=== PATIENT | female | born 1965 | race Two or more races ===

== ENCOUNTER 2025-08-16 14:45 | Inpatient (IN) | payer OTHER ==
[~2025-08-16] VITALS: Ht 154.9 cm; Wt 75.0 kg
--- NOTE | 2025-08-16 14:53 | ECG ---
[facility] Test Date: 2025-08-16 Test Time: 14:51:24 Pat Name: CAESAR BENÍTEZ Department: ED Room: [address] [place] [address] Gender: F Pharmacy Technician Per Diem: JACKSON : 1965 Requested By: BERNIE EVANS Order Number: [id number] Reading MD: Alan Cabrera Measurements Intervals [place] Rate: 93 P: 46 LA: 123 QRS: 85 QRSD: 86 T: 7 QT: 321 QTc: 400 Interpretive Statements Sinus rhythm Low voltage, precordial leads Electronically Signed On 08-17-2025 15:07:46 PST by Alan Cabrera Please click the below link to view image of tracing.
--- NOTE | 2025-08-16 15:13 | ED.PDOC ---
HPI Comments 60y F who presents to the ED for chief complaint of chest pain. Pt states she has been having chest pain for the past 3x days. Pt states she has been having chest pain across her chest, radiating to the back, intermittent, non-radiating, sharp in nature, rating the pain 6/10, with no associated exacerbating or relieving factors. Pt has associated shortness of breath and lightheadedness but otherwise denies any other symptoms. Chief Complaint: Chest Pain Time Seen by MD: 15:10 Reviewed Notes: Nurses Notes, Medications, Allergies Allergies: Coded Allergies: NO KNOWN ALLERGIES (Unverified , 08/16/25) Information Source: Patient Mode of Arrival: Ambulatory Brought in by: self Severity: Moderate Timing: Hours Duration: Since onset Prehospital treatment: None Location: Chest (R), Chest (L) Radiation: Back Quality: Sharp, Pressure Onset: At Rest Cardiac Risk Factors: None PE Risk Factors: None History of: None Modifying Factors: Nothing Associated Signs and Symptoms: SOB, Other (lightheaded) Past Medical History PAST MEDICAL HISTORY: Denies Surgical History: Cholecystectomy, Hysterectomy, Tonsillectomy Surgical History (Other): R shoulder, Family History Family History: Family hx of DM, Family hx of heart ophelia, Family hx of HTN Social History Smoker: Non-Smoker Alcohol: Occasionally Drugs: Denies Drug Use Lives In: Home Constitutional: reports: fatigue, weakness; denies: chills, diaphoresis, fever, malaise, sweats, others EENTM: denies: blurred vision, double vision, ear bleeding, ear discharge, ear drainage, ear pain, ear ringing, eye pain, eye redness, hearing loss, mouth pain, mouth swelling, nasal discharge, nose bleeding, nose congestion, nose pa in, photophobia, tearing, throat pain, throat swelling, voice changes, others Respiratory: reports: shortness of breath; denies: cough, hemoptysis, orthopnea, SOB at rest, SOB with excertion, stridor, wheezing, others Cardiovascular: denies: chest pain, dizzy spells, diaphoresis, Dyspnea on exertion, edema, irregular heart beat, left arm pain, lightheadedness, palpitations, PND, syncope, others Gastrointestinal: denies: abdomen distended, abdominal pain, blood streaked bowels, constipated, diarrhea, dysphagia, difficulty swallowing, hematemesis, m ary, nausea, poor appetite, poor fluid intake, rectal bleeding, rectal pain, vomiting, others Genitourinary: denies: abnormal vagina bleeding, burning, dyspareunia, dysuria, flank pain, frequency, hematuria, incontinence, pain, , vagina discharge, urgency, others Neurological: denies: dizziness, fainting, headache, left sided numbness, left sided weakness, numbness, paresthesia, pre-existing deficit, right sided numbness, right sided weakness, seizure, speech problems, tingling, tremors, weakness, others Musculoskeletal: denies: back pain, gout, joint pain, joint swelling, muscle pain, muscle stiffness, neck pain, others Integumetry: denies: bruises, change in color, change in hair/nails, dryness, laceration, lesions, lumps, rash, wounds, others Allergic/Immunocompromised: denies: Difficulty Healing, Frequent Infections, Hives, Itching, others Hematologic/Lymphatic: denies: anemia, blood clots, easy bleeding, easy bruising, swollen glands, others Endocrine: denies: excessive hunger, excessive sweating, excessive thirst, excessive urination, flushing, intolerance to cold, intolerance to heat, unexpla ined weight gain, unexplained weight loss, others Psychiatric: denies: anxiety, bipolar disorder, depression, hopeless, panic disorder, schizophrenia, sleepless, suicidal, others All Other Systems: Reviewed and Negative Physical Exam General Appearance: Moderate Distress HEENT: Normal ENT Inspection, Pharynx Normal, TMs Normal Neck: Full Range of Motion, Non-Tender, Normal, Normal Inspection Respiratory: Chest Non-Tender, Lungs Clear, No Accessory Muscle Use, No Respiratory Distress, Normal Breath Sounds Cardiovascular: No Edema, No JVD, No Murmur, No Gallop, Normal Peripheral Pulses, Regular Rate/Rhythm Breast Exam: Deferred Gastrointestinal: No Organomegaly, Non Tender, No Pulsatile Mass, Normal Bowel Sounds, Soft Genitalia: Deferred Pelvic: Deferred Rectal: Deferred Extremities: No calf tenderness, Normal capillary refill, Normal inspection, Normal range of motion, Non-tender, No pedal edema Musculoskeletal : Apperance: Normal Neurologic: Alert, planning intern II-XII nml as Tested, No Motor Deficits, Normal Affect, Normal Mood, No Sensory Deficits Cerebellar Function: Normal Reflexes: Normal Skin: Dry, Normal Color, Warm Lymphatic: No Adenopathy EKG EKG : Pulse Rate (adult): 93 [place]: Normal Cardiac Rhythm: NSR Block: None Hypertrophy: None ST: Normal Comments low voltage Was a procedure done? Was a procedure done?: No CP Differential Dx Differential Diagnosis: A-fib, A-Flutter, Angina, Anxiety / Panic Attack, PVC's, Sinus Tachycardia Differential Diagnosis: HTN Essential, HTN Accelerated Differential Diagnosis: Chest Wall Pain, Pericarditis X-Ray, Labs, Meds, VS Vital Signs Date Time Temp Pulse Resp B/P (MAP) Pulse Ox O2 Delivery O2 Flow Rate FiO2 08/16/25 14:51 97.6 102 16 134/86 96 97.6 Lab Test 08/16/25 16:14 08/16/25 15:40 08/16/25 14:51 Range/Units Urine Color Pending Urine Clarity Pending Urine pH Pending Urine Specific [place] Pending Urine Protein Pending Urine Ketones Pending Urine Blood Pending Urine Nitrite Pending Urine Bilirubin Pending Urine Urobilinogen Pending Urine Leukocyte Esterase Pending Urine RBC Pending Urine Microscopic WBC Pending Urine Squamous Epithelial Cells Pending Urine Bacteria Pending Urine Glucose Pending Troponin I High Sensitivity Pending < 3 L </=34 ng/L White Blood Count 7.7 4.4-10.8 10^3/uL Red Blood Count 4.97 4.0-5.20 10^6/uL Hemoglobin 14.9 12.2-16.2 g/dL Hematocrit 45.3 36.0-46.0 % Mean Corpuscular Volume 91.0 80.0-100.0 fL Mean Corpuscular Hemoglobin 30.0 28.0-32.0 pg Mean Corpuscular Hemoglobin Concent 33.0 32.0-36.0 g/dL Red Cell Distribution Width 14.6 H 11.8-14.3 % Platelet Count 308 140-450 10^3/uL Mean Platelet Volume 8.8 6.9-10.8 fL Neutrophils (%) (Auto) 65.9 37.0-80.0 % Lymphocytes (%) (Auto) 20.7 10.0-50.0 % Monocytes (%) (Auto) 8.5 0.0-12.0 % Eosinophils (%) (Auto) 4.1 0.0-7.0 % Basophils (%) (Auto) 0.8 0.0-2.0 % Neutrophils # (Auto) 5.1 1.6-8.6 10 ^3/uL Lymphocytes # (Auto) 1.6 0.4-5.4 10 ^3/uL Monocytes # (Auto) 0.6 0-1.3 10 ^3/uL Eosinophils # (Auto) 0.3 0-0.8 10 ^3/uL Basophils # (Auto) 0.1 0-0.2 10 ^3/uL Nucleated Red Blood Cells 0.1 % Sodium Level 143 136-145 mmol/L Potassium Level 4.2 3.5-5.1 mmol/L Chloride Level 109 H 98-107 mmol/L Carbon Dioxide Level 27 20-31 mmol/L Anion Gap 7 5-15 Blood Urea Nitrogen 8 L 9-23 mg/dL Creatinine 0.74 0.550-1.02 mg/dL Glomerular Filtration Rate Calc 94 >90 mL/min BUN/Creatinine Ratio 10.8 10.0-20.0 Serum Glucose 70 L 74-106 mg/dL Calcium Level 9.0 8.7-10.4 mg/dL IV Hep-Lock was established. The patient's CBC is within normal limits The chemistry panel is within normal limits At this time, the patient is being admitted to the hospitalist The chest x-ray shows no sign of any infiltrates. A cardiology consult will be obtained. Images Reviewed?: Images reviewed and evaluated by me Time of 1ST Reevaluation: 15:40 Reevaluation 1ST: Unchanged Patient Education/Counseling: Diagnosis, Treatment, Prognosis Family Education/Counseling: No Family Present SEPSIS Sepsis Screen Date sepsis recognized/suspect: Aug 16, 2025 Time Sepsis recognized/suspect: 1454 Recent Procedure: No On Antibiotic Therapy: No Respiratory Rate >20: No Heart Rate >90: Yes Temp<36 C (96.8 F) or >38.3 C: No SBP <90 or MAP <65 mmHG: No New Acute Mental Status Change: No Is the patient on CPAP, BIPAP,: No Physician Orders Troponin-I Hs (08/16/25 15:50) Troponin-I Hs (08/16/25 17:50) Heplock Iv (08/16/25 14:57) Hoop Bender Tank (08/16/25 14:57) Blood Pressure (08/16/25 14:57) Pulse Oximetry (08/16/25 14:57) Urinalysis (08/16/25 14:57) Chest Two Views Routine (08/16/25 15:10) Vital Signs Date Time Temp Pulse Resp B/P (MAP) Pulse Ox O2 Delivery O2 Flow Rate FiO2 08/16/25 14:51 97.6 102 16 134/86 96 97.6 Laboratory Tests Test 08/16/25 14:51 White Blood Count 7.7 10^3/uL (4.4-10.8) Departure 1 Departure Time of Disposition: 16:22 Impression: Primary Impression: Acute coronary syndrome Disposition: ADMITTED INPATIENT Admit to: Tele Condition: Fair Critical Care Note Critical Care Time?: Yes (45 min-critical care time only) Stability Stability form required: Yes Unstable for transfer: Telemetry monitoring (Telemetry monitoring required), ED Physician Assesment (Clinical assesment) Heart Score Heart Score: Heart Score Response (Comments) Value History Slightly Suspicious 0 EKG Normal 0 Age 45-64 1 Risk Factors No known risk factors 0 Troponin Normal limit 0 Total 1 I personally scribed for BERNIE EVANS MD ([email or web address]) on 08/16/25 at 15:13. Electronically submitted by Bartolome Malave ([email or web address]). BERNIE EVANS MD Aug 16, 2025 15:13
[2025-08-16 15:22] LABS: Potassium 4.2 mmol/L (3.5-5.1); Sodium 143 mmol/L (136-145)
[2025-08-16 15:23] LABS: Anion Gap 7 (5-15); Calcium 9.0 mg/dL (8.7-10.4); Carbon Dioxide 27 mmol/L (20-31)
[2025-08-16 15:24] LABS: Hematocrit 45.3 % (36.0-46.0); Hemoglobin 14.9 g/dL (12.2-16.2); Mean Corpuscular Hemoglobin 30.0 pg (28.0-32.0); Mean Corpuscular Volume 91.0 fL (80.0-100.0); Nucleated Red Blood Cells % 0.1 %
[2025-08-16 15:28] LABS: BUN/Creatinine Ratio 10.8 (10.0-20.0)
[2025-08-16 15:34] LABS: Blood Urea Nitrogen 8 mg/dL (9-23); Chloride 109 mmol/L (98-107); Glucose 70 mg/dL (74-106)
--- NOTE | 2025-08-16 15:44 | ECG ---
[facility] Test Date: 2025-08-16 Test Time: 15:43:41 Pat Name: CAESAR BENÍTEZ Department: Room: [address] [place] [address] Gender: F Developing Machine Tender: LETITIA : 1965 Requested By: BERNIE EVANS Order Number: [id number] Reading MD: Alan Cabrera Measurements Intervals [place] Rate: 79 P: 62 MS: 127 QRS: 82 QRSD: 82 T: 21 QT: 340 QTc: 390 Interpretive Statements Sinus rhythm Electronically Signed On 08-17-2025 15:07:49 PST by Alan Cabrera Please click the below link to view image of tracing.
--- NOTE | 2025-08-16 15:45 | DVH ---
CHEST RADIOGRAPH Indication: CP Technique: Frontal and lateral view of the chest was obtained Comparison: None FINDINGS: Lines and Tubes: None Lungs: Clear Pleura: No effusion. No pneumothorax. Cardiomediastinal contours: Unremarkable Bones: Unremarkable IMPRESSION: No evidence of acute disease.
[2025-08-16 16:29] LABS: Urine Protein, UAD Negative (Negative)
[2025-08-16] MEDS ORDERED: ONDANSETRON HCL 4 MG/2 ML VIAL IV PRN (19:30)
[2025-08-16] MEDS ORDERED: TEMAZEPAM 15 MG CAP PO PRN (19:30)
[2025-08-16] MEDS ORDERED: MORPHINE SULFATE INJ 2 MG/ml SYRG IV PRN (19:30)
[2025-08-16] MEDS ORDERED: ACETAMINOPHEN 325 MG TAB PO PRN (19:30)
[2025-08-16] MEDS ORDERED: NITROGLYCERIN 0.4 MG SL TAB SL PRN (19:30)
--- NOTE | 2025-08-16 22:52 | DVHHP2 ---
History of Present Illness Reason for Visit: Chest pain History of Present Illness 60-year-old female presents for evaluation of chest pain. Patient reports a three day history of substernal sharp chest pain that radiates to her back. Denies shortness or breath. No nausea or vomiting. She does report feeling occasionally lightheaded. No other acute complaints reported. Past Medical History Asthma Past Surgical History Hysterectomy, tonsillectomy, cholecystectomy Family History Heart disease, hypertension Smoke: No ALCOHOL: occassional Drugs: None Lives: with Family Review of Systems Review of Systems Review of systems are currently negative otherwise addressed in HPI. Allergies: Coded Allergies: NO KNOWN ALLERGIES (Unverified , 08/16/25) Medications Current Medications Medications Dose Ordered Sig/Kevin Route Start Time Stop Time Status Last Admin Dose Admin Aspirin 81 mg DAILY PO 08/17/25 10:00 Temazepam 15 mg QHSP PRN PO 08/16/25 19:30 Ondansetron HCl 4 mg Q4HP PRN IV 08/16/25 19:30 Acetaminophen 650 mg Q6HP PRN PO 08/16/25 19:30 Nitroglycerin 0.4 mg Q5MINP PRN SL 08/16/25 19:30 Morphine Sulfate 2 mg Q30M PRN IV 08/16/25 19:30 Exam Vital Signs Vital Signs Date Time Temp Pulse Resp B/P (MAP) Pulse Ox O2 Delivery O2 Flow Rate FiO2 08/16/25 19:24 97.8 70 15 107/63 (78) 97 97.8 Exam Gen: 60-year-old female in mild distress Skin: Warm, dry, normal color and texture, no rash. HEENT: Normocephalic atraumatic, mucous membranes moist and pink. Neck: Cervical and supraclavicular nodes normal without enlargement, trachea is midline, thyroid gland is normal without masses. Pulmonary: Clear to auscultation and percussion bilaterally. Cardiac: Regular rate and rhythm. No murmur Abdomen: Soft, nontender, nondistended, bowel sounds present all 4 quadrants, no guarding, no rigidity, no organomegaly. Extremities: No cyanosis, clubbing, no edema Neuro: Cranial nerves II through XII grossly intact, normal affect and speech, no focal motor deficits. Labs/Xrays Labs Test 08/16/25 19:40 08/16/25 16:14 08/16/25 14:51 Range/Units Troponin I High Sensitivity < 3 L </=34 ng/L Urine Color Yellow Yellow Urine Clarity Clear Clear Urine pH 5.5 5.0-9.0 Urine Specific [place] 1.026 1.001-1.035 Urine Protein Negative Negative Urine Ketones 1+ H Negative Urine Blood 1+ H Negative /uL Urine Nitrite Negative Negative Urine Bilirubin Negative Negative Urine Urobilinogen Normal Negative mg/dL Urine Leukocyte Esterase Negative Negative /uL Urine RBC 2 0 - 4 /hpf Urine Microscopic WBC 2 0-5 /HPF Urine Squamous Epithelial Cells Few <5 /hpf Urine Bacteria Few H None Seen /hpf Urine Mucus Few None Seen Urine Glucose Normal Normal mg/dL White Blood Count 7.7 4.4-10.8 10^3/uL Red Blood Count 4.97 4.0-5.20 10^6/uL Hemoglobin 14.9 12.2-16.2 g/dL Hematocrit 45.3 36.0-46.0 % Mean Corpuscular Volume 91.0 80.0-100.0 fL Mean Corpuscular Hemoglobin 30.0 28.0-32.0 pg Mean Corpuscular Hemoglobin Concent 33.0 32.0-36.0 g/dL Red Cell Distribution Width 14.6 H 11.8-14.3 % Platelet Count 308 140-450 10^3/uL Mean Platelet Volume 8.8 6.9-10.8 fL Neutrophils (%) (Auto) 65.9 37.0-80.0 % Lymphocytes (%) (Auto) 20.7 10.0-50.0 % Monocytes (%) (Auto) 8.5 0.0-12.0 % Eosinophils (%) (Auto) 4.1 0.0-7.0 % Basophils (%) (Auto) 0.8 0.0-2.0 % Neutrophils # (Auto) 5.1 1.6-8.6 10 ^3/uL Lymphocytes # (Auto) 1.6 0.4-5.4 10 ^3/uL Monocytes # (Auto) 0.6 0-1.3 10 ^3/uL Eosinophils # (Auto) 0.3 0-0.8 10 ^3/uL Basophils # (Auto) 0.1 0-0.2 10 ^3/uL Nucleated Red Blood Cells 0.1 % Sodium Level 143 136-145 mmol/L Potassium Level 4.2 3.5-5.1 mmol/L Chloride Level 109 H 98-107 mmol/L Carbon Dioxide Level 27 20-31 mmol/L Anion Gap 7 5-15 Blood Urea Nitrogen 8 L 9-23 mg/dL Creatinine 0.74 0.550-1.02 mg/dL Glomerular Filtration Rate Calc 94 >90 mL/min BUN/Creatinine Ratio 10.8 10.0-20.0 Serum Glucose 70 L 74-106 mg/dL Calcium Level 9.0 8.7-10.4 mg/dL SEPSIS Sepsis Screen Date sepsis recognized/suspect: Aug 16, 2025 Time Sepsis recognized/suspect: 1925 Recent Procedure: No On Antibiotic Therapy: No Respiratory Rate >20: No Heart Rate >90: No Temp<36 C (96.8 F) or >38.3 C: No SBP <90 or MAP <65 mmHG: No New Acute Mental Status Change: No Is the patient on CPAP, BIPAP,: No Physician Orders Heplock Iv (08/16/25 14:57) Senior Accounting Associate (08/16/25 14:57) Blood Pressure (08/16/25 14:57) Pulse Oximetry (08/16/25 14:57) Chest Two Views Routine (08/16/25 15:10) Basic Metabolic Panel (08/17/25 04:00) Aspirin Tablet (08/17/25 10:00) * Cardiology Consult (08/16/25 19:20) Admit (08/16/25 19:20) Temazepam (Restoril) (08/16/25 19:30) Ondansetron Hcl (Zofran) (08/16/25 19:30) Cardiac Diet-2gna,Lofat,Lochol (08/17/25 Breakfast) Echo 2d Mode Cardiac Dop (08/16/25 19:20) Condition: Fair (08/16/25 19:20) Acetaminophen Tablet (Tylenol Tablet) (08/16/25 19:30) Bedrest With Bathroom Privileg (08/16/25 19:20) Nitroglycerin Sublingual (Ntrostat Subli (08/16/25 19:30) Morphine Sulfate Injection (08/16/25 19:30) Stat Ekg For Chest Pain (08/16/25 19:20) Notify Md Of Changes From Base (08/16/25 19:20) Journeyman Carpenter For 24 Hours (08/16/25 19:20) Emergency Dysrhythmia Protocol (08/16/25 19:20) Rhythm Strips Once Every Shift (08/16/25 19:20) Oxygen By Nasal Cannula (08/16/25 19:20) Vital Signs Date Time Temp Pulse Resp B/P (MAP) Pulse Ox O2 Delivery O2 Flow Rate FiO2 08/16/25 19:24 97.8 70 15 107/63 (78) 97 97.8 08/16/25 15:13 93 08/16/25 14:51 97.6 102 16 134/86 96 97.6 Laboratory Tests Test 08/16/25 14:51 White Blood Count 7.7 10^3/uL (4.4-10.8) Medications Medications Dose Ordered Sig/Kevin Route Start Time Stop Time Status Last Admin Dose Admin Aspirin 162 mg ONCE ONCE PO 08/16/25 15:00 08/16/25 15:01 DC 08/16/25 19:13 162 MG Assessment/Plan Assessment/Plan Assessment Chest pain rule out ACS Plan Admit the patient to telemetry to the hospitalist Echocardiogram pending Cardiology consultation Continue treatment per orders. Plan discussed with: Patient My Orders Orders - LORI SALAS Procedure Category Date Status Time Basic Metabolic Panel LAB 08/17/25 Verified 04:00 Aspirin Tablet PHA 08/17/25 In Process 10:00 * Cardiology Consult CONS 08/16/25 Transmitted 19:20 Admit ADMIT 08/16/25 Transmitted 19:20 Temazepam (Restoril) PHA 08/16/25 In Process 19:30 Ondansetron Hcl PHA 08/16/25 In Process (Zofran) 19:30 Cardiac DIET 08/17/25 Transmitted Diet-2gna,Lofat,Lochol Breakfast Echo 2d Mode Cardiac US 08/16/25 Logged DOP 19:20 Condition: Fair FAZAL 08/16/25 In Process 19:20 Acetaminophen Tablet PHA 08/16/25 In Process (Tylenol Tablet) 19:30 Bedrest With Bathroom FAZAL 08/16/25 In Process Privileg 19:20 Nitroglycerin PHA 08/16/25 In Process Sublingual (Ntrostat 19:30 Morphine Sulfate PHA 08/16/25 In Process Injection 19:30 Stat Ekg For Chest FAZAL 08/16/25 In Process Pain 19:20 Notify Md Of Changes [facility] 08/16/25 In Process From Base 19:20 Journeyman Carpenter For [facility] 08/16/25 In Process 24 Hours 19:20 Emergency Dysrhythmia [facility] 08/16/25 In Process Protocol 19:20 Rhythm Strips Once [facility] 08/16/25 In Process Every Shift 19:20 Oxygen By Nasal RT 08/16/25 Transmitted Cannula 19:20 Date of Service: Aug 16, 2025 Billing Provider: LORI SALAS Common Visit Codes: [id number] INP/OBS CARE (HIGH) LORI SALAS Aug 16, 2025 22:52
[2025-08-16 23:20] LABS: Cholesterol 174 mg/dL (< 200)
[2025-08-16 23:32] LABS: HDL Cholesterol 64 mg/dL (40-59); Triglycerides 191 mg/dL (< 150)
[2025-08-17] VITALS (9 sets, daily range): BP systolic 106–124; BP diastolic 62–75; PULSE 63–90; RESP 16–20; TEMP 97.6–98.1; O2SAT 95–98
[2025-08-17 07:52] LABS: Anion Gap 8 (5-15); Carbon Dioxide 27 mmol/L (20-31); Potassium 4.1 mmol/L (3.5-5.1); Sodium 144 mmol/L (136-145)
[2025-08-17 07:54] LABS: Calcium 8.8 mg/dL (8.7-10.4)
[2025-08-17 07:58] LABS: Glucose 77 mg/dL (74-106)
[2025-08-17 07:59] LABS: BUN/Creatinine Ratio 19.7 (10.0-20.0); Blood Urea Nitrogen 12 mg/dL (9-23)
[2025-08-17 08:04] LABS: Chloride 109 mmol/L (98-107)
--- NOTE | 2025-08-17 08:40 | DVHINCON2 ---
YAMILET FLOWERS [facility] 08/17/25 0840: Date Seen: Aug 17, 2025 Referring Physician GENE Lawrence Reason for Consultation Chest pain History of Present Illness This is a 60-year-old female who presented to the emergency room with a chief complaint of chest pain for three weeks. Describes the chest pain as substernal, intermittent, pressure/sharp in nature, non-provoked, and sudden in onset with episodes lasting up to 20 minutes at a time. Per patient, she was having lunch yesterday when she developed a sudden onset of dizziness and ligh theadedness reporting a systolic blood pressure of 103 mmHg associated with nonspecific tachycardia and a blood glucose level in the 80s ng/dL which prompted her to seek further medical attention. Functional capacity is optimal as she is able to climb multiple flights of stairs without exertional angina or DECKER. Significant medical history includes asthma and former tobacco user with a 12-year pack history quitting two years ago. Past Medical History Past medical history reviewed. No other significant than mentioned above. Past Surgical History Gastric bypass Hysterectomy Tonsillectomy Cholecystectomy Family History: Diabetes mellitus G8 MOTHER Hypertension G8 MOTHER Ischemic heart disease G8 MOTHER Family History Family history reviewed. Mother: Atrial fibrillation. Maternal grandmother: CABG. Social History Denies the use of illicit drugs, alcohol, or tobacco use. Allergies: Coded Allergies: NO KNOWN ALLERGIES (Unverified , 08/16/25) Home Meds Home medications reviewed. Current Medications Current Medications Medications (Trade) Dose Ordered Sig/Kevin Route PRN Reason Start Time Stop Time Status Last Admin Aspirin 81 mg DAILY PO 08/17/25 10:00 Temazepam (Restoril) 15 mg QHSP PRN PO FOR INSOMNIA 08/16/25 19:30 Ondansetron HCl (Zofran) 4 mg Q4HP PRN IV NAUSEA / VOMITING 08/16/25 19:30 Acetaminophen (Tylenol Tablet) 650 mg Q6HP PRN PO PAIN SCALE 1-3 OR TEMP>100.4 08/16/25 19:30 Nitroglycerin (Ntrostat Sublingual) 0.4 mg Q5MINP PRN SL FOR CHEST PAIN 08/16/25 19:30 Morphine Sulfate 2 mg Q30M PRN IV FOR CHEST PAIN 08/16/25 19:30 Review of Systems Constitutional: No symptom reported Ears, Nose, & Throat: No symptom reported Eyes: No symptom reported Neurological: Dizziness, lightheadedness Pulmonary/Respiratory: No symptom reported Cardiovascular: Chest pain Gastrointestinal: No symptom reported Genitourinary: No symptom reported Musculoskeletal: No symptom reported Skin: No symptom reported Psychiatric: No symptom reported Endocrine: No symptom reported Hemotologic/Lymphatic: No symptom reported Vital Signs Vital Signs Date Time Temp Pulse Resp B/P (MAP) Pulse Ox O2 Delivery O2 Flow Rate FiO2 08/17/25 08:00 88 18 98 Room Air* 0 21 08/17/25 05:00 97.6 106/67 (80) 97.6 Physical Exam General Appearance: Cooperative. Well developed. Obese. In no acute distress Head Exam: Normal inspection Neck Exam: Normal inspection. Non-tender. Normal alignment Pulmonary/Respiratory: Chest non-tender. Clear bilateral breath sounds Cardiovascular/Chest: Regular rate and rhythm. S1, S2. Sinus rhythm Peripheral Pulses: 2+ Radial (R). 2+ Radial (L). 2+ Pedal (R). 2+ Pedal (L) Abdominal Exam: Normal bowel sounds Ankle Exam: Negative ankle edema Lower extremities: Negative lower extremity edema Neuro/Mental Status: A&O x4. Coherent Thoughts/Psych: Normal thought pattern. Appropriate mood and affect Appearance: In no acute distress Skin Exam: Normal inspection. Normal color. Warm. Dry Labs/Diagnostic Data Labs Test 08/17/25 07:09 08/16/25 19:40 08/16/25 16:14 08/16/25 14:51 Range/Units Sodium Level 144 136-145 mmol/L Potassium Level 4.1 3.5-5.1 mmol/L Chloride Level 109 H 98-107 mmol/L Carbon Dioxide Level 27 20-31 mmol/L Anion Gap 8 5-15 Blood Urea Nitrogen 12 9-23 mg/dL Creatinine 0.61 0.550-1.02 mg/dL Glomerular Filtration Rate Calc 104 >90 mL/min BUN/Creatinine Ratio 19.7 10.0-20.0 Serum Glucose 77 74-106 mg/dL Calcium Level 8.8 8.7-10.4 mg/dL Troponin I High Sensitivity < 3 L </=34 ng/L Thyroid Stimulating Hormone (TSH) 1.22 0.55-4.78 uIU/mL Urine Color Yellow Yellow Urine Clarity Clear Clear Urine pH 5.5 5.0-9.0 Urine Specific [place] 1.026 1.001-1.035 Urine Protein Negative Negative Urine Ketones 1+ H Negative Urine Blood 1+ H Negative /uL Urine Nitrite Negative Negative Urine Bilirubin Negative Negative Urine Urobilinogen Normal Negative mg/dL Urine Leukocyte Esterase Negative Negative /uL Urine RBC 2 0 - 4 /hpf Urine Microscopic WBC 2 0-5 /HPF Urine Squamous Epithelial Cells Few <5 /hpf Urine Bacteria Few H None Seen /hpf Urine Mucus Few None Seen Urine Glucose Normal Normal mg/dL White Blood Count 7.7 4.4-10.8 10^3/uL Red Blood Count 4.97 4.0-5.20 10^6/uL Hemoglobin 14.9 12.2-16.2 g/dL Hematocrit 45.3 36.0-46.0 % Mean Corpuscular Volume 91.0 80.0-100.0 fL Mean Corpuscular Hemoglobin 30.0 28.0-32.0 pg Mean Corpuscular Hemoglobin Concent 33.0 32.0-36.0 g/dL Red Cell Distribution Width 14.6 H 11.8-14.3 % Platelet Count 308 140-450 10^3/uL Mean Platelet Volume 8.8 6.9-10.8 fL Neutrophils (%) (Auto) 65.9 37.0-80.0 % Lymphocytes (%) (Auto) 20.7 10.0-50.0 % Monocytes (%) (Auto) 8.5 0.0-12.0 % Eosinophils (%) (Auto) 4.1 0.0-7.0 % Basophils (%) (Auto) 0.8 0.0-2.0 % Neutrophils # (Auto) 5.1 1.6-8.6 10 ^3/uL Lymphocytes # (Auto) 1.6 0.4-5.4 10 ^3/uL Monocytes # (Auto) 0.6 0-1.3 10 ^3/uL Eosinophils # (Auto) 0.3 0-0.8 10 ^3/uL Basophils # (Auto) 0.1 0-0.2 10 ^3/uL Nucleated Red Blood Cells 0.1 % Triglycerides Level 191 H < 150 mg/dL Cholesterol Level 174 < 200 mg/dL LDL Cholesterol 104 H < 100 mg/dL HDL Cholesterol 64 H 40-59 mg/dL Assessment Chest pain rule out coronary artery disease Rule out structural heart disease Dyslipidemia, newly diagnosed Former smoker * Transthoracic echocardiogram, pending * Twelve lead electrocardiogram revealed a sinus rhythm with T-wave inversion to lead II. Nonspecific ST-T wave segment changes * Serial troponin levels are negative * Heart Score 4 points Plan/Recommendation (Dr. Murillo) Patient seen and examined by Dr. Murillo. We will continue further cardiac ev aluation with a transthoracic echocardiogram to evaluate cardiac function and a Cardiolite stress test to rule out coronary ischemia. In the meantime, continue single-antiplatelet therapy and initiate lipid lowering agent. Continue chest pain protocol. Monitor ECG changes closely and notify accordingly. Further orders per clinical course. Thank you for allowing us to participate in this patient's care. Please call if you have any questions or concerns. This medical document was created using an electronic medical record system with voice recognition software and computerized dictation system. Although this document has been carefully reviewed, there might still be some phonetic and typographical errors. Occasional wrong-word or ``sound-alike substitutions may have occurred due to the inherent limitations of voice recognition software. These areas are purely typographical due to imperfections of the software programs and do not reflect any compromise in the patient's medical care. Pl ease read the chart carefully and recognize, using context, where these substitutions have occurred. Plan discussed with: Patient, Other NYHA Physical activity limitations: NA Date of Service: Aug 17, 2025 Billing Provider: YAMILET FLOWERS [facility] Cardiology Common Codes: [id number] INP/OBS CARE (High) OG MURILLO MD 08/17/25 1106: Date Seen: Aug 17, 2025 Referring Physician ATTESTATION NOTE; PATIENT WAS SEEN AND EXAMINED AT BEDSIDE AND PLAN WAS FORMULATED WITH [facility] . Briefly this is a 60-year-old [place]ian-speaking woman with history of obesity status post prior gastric bypass, history of heavy smoking ( 1ppd more than 12 years), well-controlled asthma, family history of CAD who presented with 2 weeks' history of intermittent chest pain/chest heaviness. Reports the frequency of the episodes have been increasing and more noticeable. She had an episode of chest pain yesterday for which she presented to the ED. reports the episode lasted approximately 20 minutes before they are resolved by themselves. 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 The episodes can happen at rest or on exertion. She used to follow with PCP however recently moved to the area and has not established a PCP yet last time she was seen by a physician was almost a year ago. Patient does not have active chest pain at the time of my exam. Patient was found to have unremarkable troponin levels. EKG did not show dynamic ischemic changes. TTE is pending. I proposed to the patient the option of stress test as inpatient versus outpatient follow-up with PCP with referral to Cardiology and stress test as an outpatient. Given concern for no we will establish PCP it was decided to proce ed with nuclear cardiac stress test as inpatient. We will keep NPO in anticipation for stress test later today. Og Murillo MD Interventional and structural cardiology Family History: Diabetes mellitus G8 MOTHER Hypertension G8 MOTHER Ischemic heart disease G8 MOTHER Allergies: Coded Allergies: NO KNOWN ALLERGIES (Unverified , 08/16/25) YAMILET FLOWERS Aug 17, 2025 08:40 OG MURILLO MD Aug 17, 2025 11:06
[2025-08-17] MEDS: REGADENOSON 0.4 MG/5 ML SYRG IV ONE ×2 (10:19→10:22)
--- NOTE | 2025-08-17 13:45 | DVHPN2 ---
Subjective no chest pain today Reviewed: H&P Changes from previous H/P or p: No Changes Objective Vitals Vital Signs Date Time Temp Pulse Resp B/P (MAP) Pulse Ox O2 Delivery O2 Flow Rate FiO2 08/17/25 13:00 97.7 68 17 113/66 (82) 97 97.7 08/17/25 08:00 Room Air* 0 21 Intake/Output Intake and Output 08/17/25 07:00 Intake Total 0 ml Output Total 0 ml Balance 0 ml Intake Oral 0 ml Output Urine Total 0 ml General Appearance: Alert, Oriented X3 HEENT: Atraumatic Lungs: Clear to auscultation Cardiovascular: Regular rate, Normal S1, Normal S2 Medications Current Medications Medications Dose Ordered Sig/Kevin Route Start Time Stop Time Status Last Admin Dose Admin Aspirin 81 mg DAILY PO 08/17/25 10:00 Temazepam 15 mg QHSP PRN PO 08/16/25 19:30 Ondansetron HCl 4 mg Q4HP PRN IV 08/16/25 19:30 Acetaminophen 650 mg Q6HP PRN PO 08/16/25 19:30 Nitroglycerin 0.4 mg Q5MINP PRN SL 08/16/25 19:30 Morphine Sulfate 2 mg Q30M PRN IV 08/16/25 19:30 Atorvastatin Calcium 40 mg HS PO 08/17/25 22:00 Laboratory Results Laboratory Tests 08/16/25 14:51 08/17/25 07:09 Chemistry Test 08/16/25 14:51 08/17/25 07:09 Calcium Level 9.0 mg/dL (8.7-10.4) 8.8 mg/dL (8.7-10.4) Lipid panel Test 08/16/25 14:51 Cholesterol Level 174 mg/dL (< 200) HDL Cholesterol 64 mg/dL (40-59) H Triglycerides Level 191 mg/dL (< 150) H HgA1c, TSH Test 08/16/25 19:40 08/17/25 09:17 Thyroid Stimulating Hormone (TSH) 1.22 uIU/mL (0.55-4.78) Hemoglobin A1c 5.1 % A1C (<5.7) Urinalysis Test 08/16/25 16:14 Urine Color Yellow (Yellow) Urine Clarity Clear (Clear) Urine pH 5.5 (5.0-9.0) Urine Specific [place] 1.026 (1.001-1.035) Urine Protein Negative (Negative) Urine Ketones 1+ (Negative) H Urine Blood 1+ /uL (Negative) H Urine Nitrite Negative (Negative) Urine Bilirubin Negative (Negative) Urine Urobilinogen Normal mg/dL (Negative) Urine Leukocyte Esterase Negative /uL (Negative) Urine RBC 2 /hpf (0 - 4) Urine Microscopic WBC 2 /HPF (0-5) Urine Squamous Epithelial Cells Few /hpf (<5) Urine Bacteria Few /hpf (None Seen) H Urine Mucus Few (None Seen) Urine Glucose Normal mg/dL (Normal) Assessment/Plan Assessment/Plan Assessment Chest pain rule out ACS Plan Pending echo and stress test cardiology on consult Plan discussed with: Patient Date of Service: Aug 17, 2025 Billing Provider: MECCA GU MD Common Visit Codes: [id number] INP/OBS CARE(HIGH) MECCA GU MD Aug 17, 2025 13:45
[2025-08-17] MEDS: ATORVASTATIN 20 MG TAB PO SCH (22:13)
[2025-08-17] MEDS: CALCIUM CARB 500 MG CHEW TAB PO ONE (22:58)
[2025-08-18 01:00] VITALS: BP 100/73; PULSE 72; RESP 16; TEMP 97.1; O2SAT 96
[2025-08-18 05:00] VITALS: BP 111/68; PULSE 75; RESP 17; TEMP 97.6; O2SAT 99
--- NOTE | 2025-08-18 07:09 | DVHSR ---
APPROVED REPORT Exam: Nuclear Stress Test Indication: Chest pain BMI: 0 Stress Test Details Stress Test: Pharmacologic stress testing performed using 0.4 mg of regadenoson per 5 mL given IV over 10 seconds. HR Resting HR: 67 bpm Max Heart Rate (APMHR): 162.428569 bpm Max HR Achieved: 105 bpm Target HR (85% APMHR): 137.516986 bpm % of APMHR: 64.81 Recovery HR: 81 bpm BP Resting BP: 135/78 mmHg Recovery BP: 128/66 mmHg ECG Resting ECG: Sinus Rhythm Clinical Reason for Termination: Completed protocol Nurse Comments Recieved pt. from [facility]. A/Ox4 on RA. Connected to electronic device monitor, VS stable. PIV flushes well. Reviewed POC. Pt. verbalized understanding of procedure including risks and side effects, agrees for stress testing. Lexiscan stress test performed per protocol. [facility] tech administered Cardiolite. Pt. tolerated well. Pt. stable, no change on exam. VS returned to baseline. Transferred to [facility] via wheelchair w/ tech. Stress ECG Conclusion lvef 77% normal perfusion scan no severe ischemia noted NM EXAM: Myocardial Perfusion REST/STRESS Imaging Protocol: Rest Tc-99m/Stress Tc-99m 1 day Resting Data Rest SPECT myocardial perfusion imaging was performed in supine position 60 minutes following the intravenous injection of 10.2 mCi of Tc-99m Sestamibi. Time of rest injection: 0900 Time of rest imagin Administration Route: IV Administration Site: Left Hand Pharmacologic Stress Pharmacologic stress test was performed by injecting Regadenoson 0.4 mg IV push followed by the intravenous injection of 33 mCi of Tc-99m Sestamibi. Time of stress injection: 1020 Time of stress imagin Administration Route: IV Administration Site: Left Hand Gated Stress SPECT was performed 95 minutes after stress injection. The images were gated to evaluate regional wall motion and calculate left ventricular ejection fraction. Nuclear Conclusion Nuclear Findings: negative for ischemia lvef 77% normal perfusion scan no severe ischemia noted
[2025-08-18 08:00] VITALS: PULSE 59
[2025-08-18 09:00] VITALS: BP 102/71; PULSE 60; RESP 18; TEMP 97.2; O2SAT 97
[2025-08-18] MEDS: ASPirin-EC 81 mg tab PO SCH (10:01)
[2025-08-18] MEDS ORDERED: ATOR20TA50 PO (10:18)
[2025-08-18] MEDS ORDERED: ASPI-543 PO (10:18)
[2025-08-18 11:29] VITALS: TEMP 36.2
--- NOTE | 2025-08-18 12:34 | DVHDS2 ---
Discharge Summary Date of Admission Aug 16, 2025 at 19:20 Date of Discharge: Aug 18, 2025 Labs/Diagnostic Data: Laboratory Results Test 08/17/25 09:17 08/17/25 07:09 08/16/25 19:40 08/16/25 16:14 Hemoglobin A1c 5.1 % A1C (<5.7) Sodium Level 144 mmol/L (136-145) Potassium Level 4.1 mmol/L (3.5-5.1) Chloride Level 109 mmol/L (98-107) Carbon Dioxide Level 27 mmol/L (20-31) Anion Gap 8 (5-15) Blood Urea Nitrogen 12 mg/dL (9-23) Creatinine 0.61 mg/dL (0.550-1.02) Glomerular Filtration Rate Calc 104 mL/min (>90) BUN/Creatinine Ratio 19.7 (10.0-20.0) Serum Glucose 77 mg/dL (74-106) Calcium Level 8.8 mg/dL (8.7-10.4) Troponin I High Sensitivity < 3 ng/L (</=34) Thyroid Stimulating Hormone (TSH) 1.22 uIU/mL (0.55-4.78) Urine Color Yellow (Yellow) Urine Clarity Clear (Clear) Urine pH 5.5 (5.0-9.0) Urine Specific [place] 1.026 (1.001-1.035) Urine Protein Negative (Negative) Urine Ketones 1+ (Negative) Urine Blood 1+ /uL (Negative) Urine Nitrite Negative (Negative) Urine Bilirubin Negative (Negative) Urine Urobilinogen Normal mg/dL (Negative) Urine Leukocyte Esterase Negative /uL (Negative) Urine RBC 2 /hpf (0 - 4) Urine Microscopic WBC 2 /HPF (0-5) Urine Squamous Epithelial Cells Few /hpf (<5) Urine Bacteria Few /hpf (None Seen) Urine Mucus Few (None Seen) Urine Glucose Normal mg/dL (Normal) Test 08/16/25 14:51 White Blood Count 7.7 10^3/uL (4.4-10.8) Red Blood Count 4.97 10^6/uL (4.0-5.20) Hemoglobin 14.9 g/dL (12.2-16.2) Hematocrit 45.3 % (36.0-46.0) Mean Corpuscular Volume 91.0 fL (80.0-100.0) Mean Corpuscular Hemoglobin 30.0 pg (28.0-32.0) Mean Corpuscular Hemoglobin Concent 33.0 g/dL (32.0-36.0) Red Cell Distribution Width 14.6 % (11.8-14.3) Platelet Count 308 10^3/uL (140-450) Mean Platelet Volume 8.8 fL (6.9-10.8) Neutrophils (%) (Auto) 65.9 % (37.0-80.0) Lymphocytes (%) (Auto) 20.7 % (10.0-50.0) Monocytes (%) (Auto) 8.5 % (0.0-12.0) Eosinophils (%) (Auto) 4.1 % (0.0-7.0) Basophils (%) (Auto) 0.8 % (0.0-2.0) Neutrophils # (Auto) 5.1 10 ^3/uL (1.6-8.6) Lymphocytes # (Auto) 1.6 10 ^3/uL (0.4-5.4) Monocytes # (Auto) 0.6 10 ^3/uL (0-1.3) Eosinophils # (Auto) 0.3 10 ^3/uL (0-0.8) Basophils # (Auto) 0.1 10 ^3/uL (0-0.2) Nucleated Red Blood Cells 0.1 % Triglycerides Level 191 mg/dL (< 150) Cholesterol Level 174 mg/dL (< 200) LDL Cholesterol 104 mg/dL (< 100) HDL Cholesterol 64 mg/dL (40-59) Other Laboratory Tests 08/17/25 07:09 08/16/25 14:51 Brief Hx & Hospital Course: 60-year-old female presents for evaluation of chest pain. Patient reports a three day history of substernal sharp chest pain that radiates to her back. Denies shortness or breath. No nausea or vomiting. She does report feeling occasionally lightheaded. No other acute complaints reported. seen by cardiology and recommended stress test negative and off chest pain Condition at Discharge: Good Final Diagnosis/Problems List chest pain musculoskeletal Discharge Disposition: Home Discharge Instruct/Medications Diet: Regular Activity: No Restrictions, As Tolerated Follow Up/Referral: PCP in 7 days Medications: aspirin, statin Scheduled Aspirin (Aspir-Low), 81 MG PO DAILY Atorvastatin Calcium (Atorvastatin Calcium), 40 MG PO HS Discharge Statement: "Patient was advised to return to the ER or call 911 if any headaches, dizziness, shortness of breath, chest pain, abdominal pain, bleeding, fevers, or worsening of medical condition. Patient was counseled about treatment plan, medications, possible side effects, patientverbalized understanding. All questions were answered to the best of my ability. This discharge took greater then 30 minutes in planning, reviewing documentation, counseling the patient, and discussing with other team members." ASSESSMENT ASSESSMENT Assessment chest pain musculoskeletal Date of Service: Aug 18, 2025 Billing Provider: MECCA GU MD Common Visit Codes: [id number] DISCH DAY >30min MECCA GU MD Aug 18, 2025 12:34
--- NOTE | 2025-08-19 16:42 | DVHSR ---
APPROVED REPORT EXAM: Two-dimensional and M-mode echocardiogram with Doppler and color Doppler. Blood Pressure: 111/68 mmHg INDICATION Chest Pain RISK FACTORS Height: 61, Weight: 1665 DIMENSIONS LVDd 3.4 (3.8-5.7cm) LA (2D) 3.7 (1.9-4.0cm) Aortic Root 3.2 (2.0-3.7cm) LVDs 2.3 (2.5-4.0cm) LA (MM) (1.9-4.0cm) Aortic Cusp Exc 1.8 (1.5-2.0cm) EF (%) 55.0 (55-70%) Rt. Atrium 3.6 (1.9-4.0cm) Asc. Aorta cm IVSd 0.8 (0.7-1.1cm) RV (D) 3.7 (1.8-2.4cm) PWd 0.8 (0.7-1.1cm) Mitral Valve Mitral Mitral Stenosis E wave 0.69m/s MV Mean GR. mmHg A wave 0.78m/s MV Peak GR. 33mmHg E/A ratio 0.9 2D MVA cm2 DECEL Time 242ms PRESS 1/2 Time ms Aortic Valve Aortic Valve Aortic Stenosis V1 1.17m/s AO Mean GR. 4mmHg V2 1.29m/s AO Peak GR. 7mmHg LVOT Diameter 1.9 (1.8-2.4cm) Doppler KAREN 2.57cm2 Pulmonic Valve V2 0.75m/s Tricuspid Valve TR Velocity 2.04m/s RVSP 20mmHg Other Information Quality : Technically Limited Rhythm : Conclusion LVEF normal at 50-55% RV size and function grossly normal
== END 2025-08-18 11:58 | disposition home or self-care (01) | DRG 313 ==
LOC: ER 14:45 → OVERFLOW 19:20 → TELE-CENTR 08-17 21:50
PROVIDERS: ADMIT Hospitalist; ATTEND Hospitalist
DX: R07.89 Other chest pain (principal); I24.9 Acute ischemic heart disease, unspecified; E78.5 Hyperlipidemia, unspecified; J45.909 Unspecified asthma, uncomplicated; Z90.710 Acquired absence of both cervix and uterus; Z90.49 Acquired absence of other specified parts of digestive tract; Z87.891 Personal history of nicotine dependence; Z82.49 Family history of ischemic heart disease and other diseases of the circulatory system; Z83.3 Family history of diabetes mellitus; Z98.84 Bariatric surgery status
CPT/HCPCS: 36415; 71046; 78452; 80048; 80061; 81001; 83036; 84443; 84484; 85025; 93005; 93017; 93306; 99291; G0378